=== PATIENT | female | born 1985 | race Caucasian/White ===

== ENCOUNTER → 2017-05-02 06:23 | Day surgery (SDC) | payer OTHER ==
[~2017-05-02 06:23] MED LIST: Buffered Lidocaine 0.9% SYRIN* 5 ML/SYR SYRINGE INTRADERM ONE; Buffered Lidocaine 0.9% SYRIN* 5 ML/SYR SYRINGE ONE; Bupivacaine 0.5% W/EPI SDV* 10 ML VIAL INJ ONE; Cisatracurium* 2 MG/ML MDV 5 ML ONE; Clindamycin 900 MG IVPREMIX(* 900 MG/50 ML SDV IV ONE; Gentamicin ADULT (*) 300 MG in NS 0.9% 250 ML* 250 ML IVPB ONE; Glycopyrrolate IV* 0.2 MG/ML 1 ML VIAL ONE; Ibuprofen TAB* 600 MG PO PRN; Ketorolac INJ* 30 MG/ML 1 ML VIAL ONE; Lidocaine 2% PF * 5 ML VIAL ONE; Neostigmine Methylsulfate* 2 MG/2 ML SYRINGE ONE; Ondansetron INJ* 2 MG/ML VIAL IV PRN; Propofol* 10 MG/ML 20 ML BTL IV PUSH ONE; Sodium Citrate/Citric Acid* 15 ML UDC ONE; Sodium Citrate/Citric Acid* 15 ML UDC PO ONE; fentaNYL* 50 MCG/ML 2 ML VIAL (100 MCG VIAL) IV PRN; fentaNYL* 50 MCG/ML 2 ML VIAL (100 MCG VIAL) ONE; oxyCODONE/Acetamin 5/325 MG* TAB ONE; oxyCODONE/Acetamin 5/325 MG* TAB PO PRN
[2017-05-02 06:44] LABS: Manual Entry Verification ROB0080; UR Preg Internal Control QC Line Present
[2017-05-02 11:20] VITALS: BP 119/59
--- NOTE | 2017-05-03 03:45 | OP ---
DATE OF OPERATION: 05/02/17 [facility] DATE OF : 87 SURGEON: Rossana Mendes MD [employer] SUPERINTENDENT: Dr. Riley. ANESTHESIOLOGIST: Dr. Merritt. ANESTHESIA: General endotracheal anesthesia. PRE-OP DIAGNOSIS: Multiparity, desires permanent sterilization. POST-OP DIAGNOSIS: Multiparity, desires permanent sterilization. OPERATIVE PROCEDURE: Laparoscopic bilateral tubal interruption. ESTIMATED BLOOD LOSS: Minimal, less than 50 cc. URINE OUTPUT: 300 cc clear urine. FINDINGS: Midline small uterus. Normal-appearing ovaries and fallopian tubes bilaterally. COMPLICATIONS: None. COUNTS: Sponge, lap, and needle count were correct x2. CONDITION: The patient was brought to the recovery room awake and in stable condition. DESCRIPTION OF PROCEDURE: The patient was brought to the operating room. Time- out was performed. When general anesthesia was found to be adequate, the patient was prepped and draped in the usual sterile fashion after a Pepper catheter had been placed under sterile conditions. The patient was in the dorsal supine position. Time-out was then performed. Approximately 1-cm vertical skin incision was made in the infraumbilical fold. Using the S- retractors, the fascia was identified, grasped between 2 Yousif clamps, and incised. The blunt trocar was placed. Correct placement was confirmed with the laparoscope. The abdomen was insufflated with CO2 gas. The patient was placed in Trendelenburg position. A 5-mm skin incision was made approximately 2 cm above the suprapubic in the midline and a 5-mm trocar and sleeve were advanced under direct visualization. The abdomen and pelvis were examined with the above findings noted. Attention was then turned to the patient's right fallopian tube, which was followed out to the fimbriated end and cauterized in multiple locations, approximately 5 locations. Attention was then turned to the patient's left fallopian tube, which was also followed out to the fimbriated end and cauterized in 5 separate locations. The 5-mm trocar and sleeve were removed under direct visualization. The fascia, which had been tagged with 0 Vicryl with a UR6 needle upon entry was closed. No defect was palpated. The skin was closed with 4-0 Vicryl. Steri-Strips were applied. Excellent hemostasis was noted and the patient was brought to the recovery room awake and in stable condition. [id number]/[facility] #: [id number] SHERRY
== END | disposition home or self-care (01) ==
LOC: OR 06:23
PROVIDERS: ATTEND Obstetrics & Gynecology
DX: Z30.2 Encounter for sterilization (principal); Z87.891 Personal history of nicotine dependence
CPT/HCPCS: 81025; A9270-GY; J1580; J1885; J2704; J3010

== ENCOUNTER 2018-12-29 08:07 | Emergency (ER) | payer OTHER ==
[2018-12-29 08:19] VITALS: BP 149/80
--- NOTE | 2018-12-29 08:24 | UC ---
General HPI - HPI Summary HPI Summary: 33 yo female c/o cough, congestion (sinus and chest) x approx 1 week. Possible fever at the beginning, not now. Some GI sx. No Gu reported. Some blood from nose, thinks blowing nose hard. No hemoptysis. Sputum greenish. No sob / cp (except with cough). - History of Current Complaint Chief Complaint: UCRespiratory Stated Complaint: RESP ISSUE Time Seen by Provider: 12/29/18 08:24 Hx Obtained From: Patient Hx Last Menstrual Period: 12/27/18 Pain Intensity: 7 - Allergy/Home Medications Allergies/Adverse Reactions: Allergies Allergy/AdvReac Type Severity Reaction Status Date / Time amoxicillin Allergy Rash Verified 12/29/18 08:21 azithromycin Allergy GI Upset Verified 12/29/18 08:21 clarithromycin [From Biaxin] Allergy Rash Verified 12/29/18 08:21 prednisone Allergy Anxiety Verified 12/29/18 08:21 Sulfa (Sulfonamide Allergy Hives Verified 12/29/18 08:21 Antibiotics) Home Medications: Home Medications Ibuprofen [Advil] 400 mg PO ONCE PRN 12/29/18 [History Confirmed 12/29/18] guaiFENesin [Mucinex] 1,200 mg PO ONCE 12/29/18 [History Confirmed 12/29/18] PMH/Surg Hx/FS Hx/Imm Hx Previously Healthy: Yes - Surgical History Surgical History: Yes Surgery Procedure, Year, and Place: [place] CH[place] [facility] [place] History Known Family History: Positive: Cardiac Disease - Social History Alcohol Use: None Substance Use Type: None Smoking Status (MU): Former Smoker Type: Cigarettes Amount Used/How Often: 1/2-1 PPD 8-10 YRS Length of Time of Smoking/Using Tobacco: 8-10 YRS Have You Smoked in the Last Year: No When Did the Patient Quit Smoking/Using Tobacco: 2011 Review of Systems All Other Systems Reviewed And Are Negative: Yes Constitutional: Positive: Other - see hpi Skin: Positive: Other Eyes: Positive: Other ENT: Positive: Other Respiratory: Positive: Other Cardiovascular: Positive: Other Gastrointestinal: Positive: Other Motor: Positive: Other Neurovascular: Positive: Other Musculoskeletal: Positive: Other: Neurological: Positive: Other Psychological: Positive: Negative Is Patient Immunocompromised?: Yes Physical Exam Triage Information Reviewed: Yes Appearance: Well-Nourished Vital Signs: Initial Vital Signs Temp 98.2 F 12/29/18 08:13 Pulse 46 12/29/18 08:13 Resp 18 12/29/18 08:13 BP 149/80 12/29/18 08:13 Pulse Ox 100 12/29/18 08:13 Vital Signs Reviewed: Yes Eye Exam: Normal - eyes watery ENT: Positive: Pharyngeal erythema - mild erythema, no sores / exudates. Uvula midline., Nasal congestion, Nasal drainage, TM dull Neck exam: Normal Neck: Positive: Supple, Nontender, No Lymphadenopathy Respiratory Exam: Other - BS equal, full. + rhonchorus cough with exp wheeze. No rtx. Respiratory: Positive: Chest non-tender, No respiratory distress, No accessory muscle use Cardiovascular Exam: Normal Cardiovascular: Positive: RRR, No Murmur, Pulses Normal, Brisk Capillary Refill Abdominal Exam: Normal Abdomen Description: Positive: Nontender Musculoskeletal Exam: Normal Neurological Exam: Normal - grossly nonfocal Psychological Exam: Normal Skin Exam: Normal - no visible or reported rash Course/Dx - Course Course Of Treatment: REviewed coa / tx plan. SEveral allergies noted. PCN allergy - anxiety attack. She will check with her doctor about maybe getting allergy tested in the future. she reports that she tolerated cefdinir in the past without issue. Questions as posed answered to the best of my ability. - Diagnoses Provider Diagnosis: Bronchitis, Sinusitis Discharge - Sign-Out/Discharge Documenting (check all that apply): Patient Departure All imaging exams completed and their final reports reviewed: No Studies - Discharge Plan Condition: Stable Disposition: HOME Prescriptions: Albuterol HFA INHALER* [Ventolin HFA Inhaler*] 1 - 2 puff INH Q4H PRN #1 mdi PRN Reason: Wheezing Benzonatate CAP* [Tessalon 100 MG CAP*] 100 mg PO TID PRN #30 cap PRN Reason: Cough Cefdinir [Cefdinir 300 MG CAP] 300 mg PO BID #20 cap Patient Education Materials: Sinusitis (ED), Acute Bronchitis (ED) Forms: *Work Release Referrals: Patricia Card NP [Primary Care Provider] - - Billing Disposition and Condition Condition: STABLE Disposition: Home
== END 2018-12-29 09:06 | disposition home or self-care (01) ==
LOC: UCEAST 08:07
DX: J40 Bronchitis, not specified as acute or chronic (principal); J32.9 Chronic sinusitis, unspecified; Z88.1 Allergy status to other antibiotic agents; Z88.0 Allergy status to penicillin; Z88.2 Allergy status to sulfonamides; Z88.8 Allergy status to other drugs, medicaments and biological substances; Z87.891 Personal history of nicotine dependence
CPT/HCPCS: 99212; G0463